=== PATIENT | male | born 1935 | race Caucasian/White ===

== ENCOUNTER 2017-05-14 08:21 | Outpatient (CLI) | payer MEDICARE | END 2017-05-14 08:22 | disposition home or self-care (01) | LOC: LABBT 08:21 | PROVIDERS: ATTEND Orthopaedic Surgery | DX: Z01.810 Encounter for preprocedural cardiovascular examination (principal); Z01.812 Encounter for preprocedural laboratory examination; M17.11 Unilateral primary osteoarthritis, right knee | CPT/HCPCS: 87081; 93005; 93010 ==

== ENCOUNTER 2017-05-14 08:30 | Inpatient (IN) | payer MEDICARE ==
--- NOTE | 2017-05-23 13:34 | HP ---
HISTORY OF PRESENT ILLNESS: The patient is a 81-year-old male with a long history of progressive deg enerative arthritis of the right knee, unresponsive to conservative treatment including rest, restric tion of activities, and previous cortisone injections. The pain is now interfering with day-to-day a ctivities. He has had previous left total knee replacement in 2010 with good results. PAST MEDICAL HISTORY: The patient has a history of diabetes, peripheral vascular disease and previou s coronary bypass. He has also had previous femoral popliteal grafting on the right side with resolu tion of his symptoms of cramping and pain, but he continues to have knee pain. He has been seen and cleared for surgery by his primary care physician, Dr. 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 CURRENT MEDICATIONS: Include Lantus, insulin, Synthroid, aspirin, Crestor, Bystolic. ALLERGIES: He is allergic to IODINE. FAMILY HISTORY: Otherwise unremarkable. SOCIAL HISTORY: Otherwise unremarkable. REVIEW OF SYSTEMS: Otherwise unremarkable. PHYSICAL EXAMINATION: GENERAL: Reveals an elderly, heavyset male. HEENT: Unremarkable. NECK: Supple. CHEST: Clear. HEART: Regular rate and rhythm. ABDOMEN: Soft, nontender. RECTAL/GENITAL: Deferred. EXTREMITIES: Pertinent findings of the right knee: There is puffiness but no definite effusion. Th ere is mild varus. There is tenderness and crepitus over the medial joint line. Range of motion is 0-120 degrees. There is no instability. There is good capillary refill. I cannot palpate distal pu lses. Slight right antalgic gait. Neurovascular exam is intact. LABORATORY AND X-RAY FINDINGS: X-rays of the right knee reveal bone on bone collapse medially and va scular calcifications. IMPRESSION: 1. Degenerative arthritis, right knee. 2. Peripheral vascular disease. 3. Atherosclerotic cardiovascular disease. 4. Insulin-dependent diabetes. 5. Status post left total knee replacement. PLAN: Right total knee replacement. The nature of the surgery, length of recovery, and potential co mplications such as infection, loss of motion, incomplete relief, delayed wound healing, neurovascula r injury, thromboembolic phenomenon, possible transfusion, and need for revision have been discussed in detail. Because of his other medical problems, he may require longer than usual hospital stay.
[2017-05-27] MEDS ORDERED: Midazolam HCl 2 mg/2 ml Vial ONE (09:24)
[2017-05-27] MEDS ORDERED: Fentanyl 100 MCG/2 ML VIAL ONE ×3 (09:24→14:12)
[2017-05-27] MEDS ORDERED: Vancomycin HCl 2 GM, Admixture Fee 1 EACH in Sodium Chloride 0.9% 500 ML IVPB SCH (10:00)
[2017-05-27] MEDS ORDERED: CEFAZOLIN/Water 2 GM/20 ML SYRINGE ONE (10:26)
[2017-05-27] MEDS ORDERED: Tranexamic Acid 1,000 MG/100 ML BAG ONE ×2 (10:27→14:29)
[2017-05-27 10:43] LABS: Potassium 4.3 mmol/L (3.5-5.1)
[2017-05-27] MEDS ORDERED: Promethazine HCl 25 MG/ML VIAL IM PRN ×3 (11:07→15:56)
[2017-05-27] MEDS ORDERED: Ondansetron HCl/PF 4 MG/2 ML Vial IVP PRN ×3 (11:07→15:56)
[2017-05-27] MEDS ORDERED: Zolpidem Tartrate 5 MG TAB PO PRN ×2 (11:07→15:56)
[2017-05-27] MEDS ORDERED: HYDROcodone/Acetaminophen 10/325 mg Tablet PO PRN ×3 (11:07→15:56)
[2017-05-27] MEDS ORDERED: Ropivacaine HCl/PF 250 ML in Premix Bag 1 BAG NERVE BLCK SCH (11:07)
[2017-05-27] MEDS ORDERED: Bupivacaine HCl 0.5%/Epinephrine 1:200,000/PF 30 ml Vial ONE (11:24)
[2017-05-27] MEDS ORDERED: Lidocaine 1% w/Epinephrine 1:100K 30 ML VIAL ONE (11:24)
[2017-05-27] MEDS ORDERED: Bupivacaine 0.25% HCL 30 ML VIAL ONE (11:24)
[2017-05-27] MEDS ORDERED: Promethazine HCl 25 MG/ML VIAL SLOW IVP PRN (12:11)
[2017-05-27] MEDS ORDERED: Ropivacaine 0.5% HCl/PF (150 MG/30 ML VIAL) ONE (13:42)
[2017-05-27] MEDS ORDERED: Ropivacaine 0.2% HCl/PF (40 MG/20 ML VIAL) ONE (13:42)
--- NOTE | 2017-05-27 13:55 | OP ---
DATE OF PROCEDURE: 05/27/2017 PREOPERATIVE DIAGNOSIS: End-stage tricompartmental osteoarthritis, right knee. POSTOPERATIVE DIAGNOSIS: End-stage tricompartmental osteoarthritis, right knee. OPERATIVE PROCEDURE: Cemented cruciate-sparing computer-assisted navigated right total knee arthroplasty. SURGEON: Nadeem Sood M.D. [employer]OUNT [employer] SALES: Darrick Segura PA-C. ANESTHESIA: General via laryngeal mask airway augmented with indwelling adductor canal block and a single shot sciatic block. COMPONENTS USED: [employer] Triathlon cemented cruciate-sparing size 6 primary femoral component with size 6 universal cemented baseplate. An 11 mm polyethylene fixed bearing insert and A35 patellar button. TOURNIQUET: Not used. ESTIMATED BLOOD LOSS: 400 mL. FINDINGS: End-stage severe degenerative tricompartmental disease, bone on bone arthrosis, periarticular osteophyte formation, large serous effusion, hypertrophic synovium. DRAINS: None. SPECIMENS: None. COMPLICATIONS: None. COUNTS: Correct. INDICATIONS FOR SURGERY: Cabrera is a 81-year-old white male who has right knee pain amplified with standing and walking about 5-7 years. He has failed conservative management and elected to proceed with total knee arthroplasty as definitive treatment of his pain. Tourniquet was not used due to the patient's known femoropopliteal arterial bypass and known peripheral vascular disease. PROCEDURE IN DETAIL: After informed consent was obtained in the preoperative holding area. The patient was taken to the operative suite where general anesthesia was induced. Once adequate level of general anesthesia was obtained , the patient was positioned and a well-padded tourniquet was placed around the right proximal thigh. The right lower extremity was then prepped and draped in the usual sterile fashion. A midline longitudinal incision was then made directly over the patella extending two fingerbreadths above the superior pole of the patella and two fingerbreadths inferior to the inferior patellar pole of the patella. Deeper subcutaneous layers were dissected sharply and local bleeding was controlled with Bovie electrocautery. A quad tendon longitudinal split was then made sharply and a median parapatellar arthrotomy was carried out both sharp and with Bovie electrocautery, carried down to one fingerbreadth medial to the tibial tubercle. The knee was then placed into flexion and the patella was everted nicely, and a copious fat pad ectomy was performed allowing for greater exposure of the tibia. The computer-assisted distal femoral fiducial was then placed and pinned firmly, and the distal femoral cutting guide was pinned firmly into place. The oscillating saw was then used to remove the appropriate amount of bone. The 4-in-1 cutting block was then placed on the distal femur and the oscillating saw was used to remove the appropriate amount of bone off of the anterior, posterior, and chamfer cuts. After completion of the chamfer cuts, the box-cutting guide was placed, malleted firmly into place and pinned securely, and an osteotome was used to make the distal cut and the oscillating saw was then used to make the medial and lateral box cuts. This came out quite nicely and was removed with Bovie electrocautery, and the oscillating saw was then used to broaden the lateral medial lagunas of the box cut. After completion of bone cuts, the anterior cruciate ligament was resected sharply and the posterior cruciate ligament retractor was placed and the tibia was subluxed for better exposure. Partial meniscectomies were carried out, and the tibial computer-assisted fiducial was pinned, and the cutting guide was placed. Oscillating saw was then used to remove the bone with Hohmann retractors used to take care and protect the collateral ligaments. After the tibial resection was performed, a laminar instrument tech was placed in between the freshened bone cuts. The knee placed at 90 degrees and further bilateral meniscectomies were carried out, and the curved osteotome and curettage was used to remove any excess bone spurs in the posterior compartment. The trial femoral component, tibial baseplate were placed with the appropriate polyethylene trial insert with an appropriate polyethylene spacer and patellar button. The knee was taken through full range of motion with flexion and extension from 0-90 degrees and patellar broach squarely in the trochlea without any squinting or subluxation noted. The knee was also stable to varus and valgus stressing at 0, 15, 45, and 90 degrees of flexion. The drawer was negative. All trial components were then removed and the keel punch was used to provide the appropriate defect in the tibia with a mallet. The freshened bone cuts were copiously irrigated with pulsatile lavage of about 1-1/2 liters to remove all excess debris. The freshened bone cuts were then dried and with suction and lap sponge. The knee was placed in flexion and retractors were placed to provide access to all bone cuts. Tobramycin impregnated methyl methacrylate cement was then placed on the freshened bone cuts and implants which were malleted firmly into place. Curettage and [place] elevators were used to remove any excess bone cement. The knee was placed into full extension and the patellar button was placed under compression, and the cement was allowed to cure. Once completed, the components were again taken through full range of motion and copious irrigation of the knee was carried out with another liter of normal saline. All components were inspected fully with full range of motion and varus and valgus stressing. There was no laxity noted and full extension was observed clinically. Primary closure was accomplished with #2 interrupted Vicryl stitch of the arthrotomy defect. This was oversewn with a #2 running Quill barbed stitch. The subcutaneous layer was then closed with a running 0 barbed Monocryl stitch and skin closure accomplished with a running subcuticular 3-0 Monocryl barbed Quill stitch and augmented with cement on the skin. Good distal pulses was noted clinically and a sterile dressing was applied to the incision. The procedure was terminated without any complications. The patient was awakened in the operative suite and taken to the recovery room in stable condition. GUILLERMO
[2017-05-27] MEDS ORDERED: Tranexamic Acid 1,000 MG in Sodium Chloride 0.9% 100 ML IVPB SCH ×2 (14:00→15:56)
[2017-05-27] MEDS ORDERED: Ketorolac Tromethamine 30 MG/ML VIAL ONE (14:33)
[2017-05-27] MEDS ORDERED: Propofol 200 MG/20 ML VIAL ONE (15:01)
[2017-05-27] MEDS ORDERED: Lidocaine 1% PF 5 ML VIAL ONE (15:01)
[2017-05-27] MEDS ORDERED: ePHEDrine/0.9% NaCl/PF SYRINGE 50 mg/10 ml ONE (15:01)
[2017-05-27] MEDS ORDERED: Ondansetron HCl/PF 4 MG/2 ML Vial ONE (15:01)
--- NOTE | 2017-05-27 15:52 | RAD ---
TWO VIEWS RIGHT KNEE: HISTORY: Right knee pain status post right knee arthroplasty. FINDINGS: AP and lateral views of the right knee are obtained. There has been a right knee arthroplasty. Femoral and tibial components in good position. Gas is se en in the right knee joint. There is marked atherosclerotic calcification of the superficial femoral artery and post trifurcation arteries. IMPRESSION: Status post right knee arthroplasty. POS: CET
[2017-05-27] MEDS ORDERED: Cyanocobalamin 1000 MCG/ML VIAL SC SCH (15:56)
[2017-05-27] MEDS ORDERED: Acetaminophen 325 MG TAB PO PRN (15:56)
[2017-05-27] MEDS ORDERED: Fentanyl 100 MCG/2 ML VIAL SLOW IVP PRN ×2 (15:56)
[2017-05-27] MEDS ORDERED: diphenhydrAMINE 25 MG CAP PO PRN (15:56)
[2017-05-27] MEDS ORDERED: Spiriva 18 MCG CAP (Box of 5 Caps) INH PRN (15:56)
[2017-05-27] MEDS ORDERED: PROVENTIL INHALER 6.7 G (200 INHALATIONS) INH PRN (15:56)
[2017-05-27] MEDS ORDERED: traMADol HCl 50 MG TAB PO PRN (15:56)
[2017-05-27] MEDS: Fentanyl 100 MCG/2 ML VIAL IV PRN ×2 (16:20→20:22)
[2017-05-27] MEDS: Sodium Chloride 0.9% 1,000 ML IV SCH (16:48)
[2017-05-27] MEDS: Ketorolac Tromethamine 30 MG/ML VIAL IVP SCH ×3 (17:40→20:16)
[2017-05-27] MEDS: metFORMIN 500 MG TAB PO SCH (18:30)
[2017-05-27] MEDS: HYDROcodone/Acetaminophen 10/325 mg Tablet PO PRN ×2 (18:30→22:25)
[2017-05-27] MEDS: CEFAZOLIN/Water 2 GM/20 ML SYRINGE SLOW IVP SCH ×3 (18:31→20:18)
[2017-05-27] MEDS ORDERED: Losartan 25 MG TAB PO SCH (18:45)
[2017-05-27] MEDS: Alogliptin 6.25 MG TAB PO SCH (18:59)
[2017-05-27] MEDS ORDERED: Dextrose 50% Abboject 50 ML SYRINGE SLOW IVP PRN (19:14)
[2017-05-27] MEDS ORDERED: Dextrose 5% in Water 1,000 ML IV PRN (19:14)
[2017-05-27] MEDS ORDERED: Insulin Regular 300 UNITS/3 ML VIAL SC PRN (19:14)
[2017-05-27 19:54] VITALS: BMI 38.0
[2017-05-27] MEDS: Aspirin 81 mg Enteric Coated Tablet PO SCH (20:22)
[2017-05-27] MEDS: Tamsulosin HCl 0.4 MG CAP PO SCH (20:22)
[2017-05-27] MEDS: Rosuvastatin 20 MG TAB PO SCH (20:22)
--- NOTE | 2017-05-27 20:34 | PDOC.PN ---
- Subjective Encounter Start Date: 05/27/17 Encounter Start Time: 20:34 Patient seen and examined. Pain controlled. No CP/SOB. - Objective MAR Reviewed: Yes Vital Signs & Weight: Vital Signs (12 hours) Temp Pulse Resp BP Pulse Ox 05/27/17 20:24 71 16 149/63 H 05/27/17 16:00 97.6 F 66 18 100 05/27/17 15:30 97.6 F 66 18 144/59 H 100 Weight Weight 265 lb I&O: 05/26/17 05/27/17 05/28/17 06:59 06:59 06:59 Intake Total 1310 Output Total 300 Balance 1010 Result Diagrams: 05/27/17 10:15 Additional Labs: Accuchecks 05/27/17 05/27/17 16:17 13:54 POC Glucose 99 97 EKG Reviewed by me: Yes (, JANNET) Phys Exam - Physical Examination Constitutional: NAD Respiratory: no wheezing, no rales, no rhonchi Cardiovascular: RRR, no rub no heaves/pulsations Gastrointestinal: soft, non-tender, no distention, positive bowel sounds Musculoskeletal: no edema Dx/Plan - Plan DVT proph w/SCDs IMPRESSION: 1. DM2 2. CAD s/p CABG 3. PVD s/p fem-pop 4. HTN 5. HLD 6. h/o CVA 7. Hypothyroidism / Obesity BMI 38 PLAN: * Add insulin sliding scale. * Hold Lantus for now * Cont current home meds as below * DVT prophylaxis per protocol * Cont Levothyroxine * Cont Losartan Review of Systems - Review of Systems Respiratory: negative: Cough, Dry, Shortness of Breath, Hemoptysis, SOB with Excertion, Pleuritic Pain, Sputum, Wheezing Cardiovascular: negative: chest pain, palpitations, orthopnea, paroxysmal nocturnal dyspnea, edema, light headedness Gastrointestinal: negative: Nausea, Vomiting, Abdominal Pain, Diarrhea, Constipation, Melena, Hematochezia - Medications/Allergies Allergies/Adverse Reactions: Allergies Allergy/AdvReac Type Severity Reaction Status Date / Time Iodinated Contrast- Oral and Allergy rash, Verified 05/14/17 08:53 IV Dye flushing, itching Medications: Current Medications Acetaminophen (Tylenol) 650 mg PO Q4H PRN PRN Reason: SHIN/ T > 101F; Mild Pain (1-3) Hydrocodone Bitart/Acetaminophen ([place] 10/325) 1 tab PO Q4H PRN PRN Reason: Pain (1-3) Hydrocodone Bitart/Acetaminophen ([place] 10/325) 2 tab PO Q4H PRN PRN Reason: PAIN (4-6) Last Admin: 05/27/17 18:30 Dose: 2 tab Albuterol Sulfate (Proventil Hfa) 2 puff INH Q6H PRN PRN Reason: SOB &/or Wheezing Albuterol/Ipratropium (Duoneb) 3 ml NEB [id number] PRN PRN Reason: SOB &/or Wheezing Alogliptin Benzoate (Alogliptin) 12.5 mg PO BID-[facility] Last Admin: 05/27/17 18:59 Dose: 12.5 mg Aspirin (Ecotrin) 81 mg PO BID [facility] Last Admin: 05/27/17 20:22 Dose: 81 mg Cefazolin Sodium (Ancef) 2 gm SLOW IVP 0400,1200,2000 [facility] Stop: 05/28/17 04:01 Last Admin: 05/27/17 20:18 Dose: 2 gm Cyanocobalamin (Vitamin B-12) 100 mcg SC Q28D [facility] Dextrose/Water (Dextrose 50%) 25 gm SLOW IVP PRN PRN PRN Reason: Hypoglycemia Diphenhydramine HCl (Benadryl) 25 mg PO Q6H PRN PRN Reason: Itching Fentanyl (Sublimaze) 50 mcg IV Q1H PRN PRN Reason: Moderate to Severe Pain (6-10) Last Admin: 05/27/17 20:22 Dose: 50 mcg Ferrous [facility]) [facility] Glucagon (Glucagon) 1 mg IM PRN PRN PRN Reason: Hypoglycemia Ropivacaine 250 ml/ Device 250 mls @ 0 mls/hr NERVE BLCK INF [facility] PRN Reason: As Directed Sodium Chloride (Normal Saline 0.9%) 1,000 mls @ 100 mls/hr IV .Q10H [facility] Last Admin: 05/27/17 16:48 Dose: 1,000 mls Vancomycin HCl 2 gm/ Sodium (Chloride) 500 mls @ 250 mls/hr IVPB 2300 [facility] Stop: 05/28/17 00:59 Dextrose/Water (D5w) 1,000 mls @ 0 mls/hr IV .Q0M PRN; As Directed PRN Reason: Hypoglycemia Insulin Human Regular (Humulin R) 0 units SC .MILD SLIDING SCALE PRN PRN Reason: Mild Correctional Scale Insulin Human Regular (Humulin R) 0 units SC .BEDTIME SLIDING SC PRN PRN Reason: Bedtime Correctional Scale Iron/Minerals/Multivitamins (Theragran M) 1 tab PO DAILY [facility] Ketorolac Tromethamine (Toradol) 15 mg IVP 0300,0900,1500,2100 [facility] Stop: 05/29/17 15:01 Last Admin: 05/27/17 20:16 Dose: 15 mg Levothyroxine Sodium (Synthroid) 200 mcg PO 0600 SERGIO Losartan Potassium (Cozaar) 50 mg PO QAM [facility] Losartan Potassium (Cozaar) 50 mg PO NOW [facility] Stop: 05/27/17 20:45 Last Admin: 05/27/17 19:00 Dose: 50 mg Metformin HCl (Glucophage) 1,000 mg PO BID-[facility] Last Admin: 05/27/17 18:30 Dose: 1,000 mg Nebivolol (Bystolic) 2.5 mg PO QAM [facility] Ondansetron HCl (Zofran) 4 mg IVP Q6H PRN PRN Reason: Nausea/Vomiting Pioglitazone HCl (Actos) 15 mg PO QAM [facility] Promethazine HCl (Phenergan) 12.5 mg IM Q4H PRN PRN Reason: Nausea/Vomiting Rosuvastatin Calcium (Crestor) 20 mg PO HS [facility] Last Admin: 05/27/17 20:22 Dose: 20 mg Senna/Docusate Sodium (Senokot S) 2 tab PO BID [facility] Sodium Chloride (Flush - Normal Saline) 10 ml IVF PRN PRN PRN Reason: Saline Flush Tamsulosin HCl (Flomax) 0.4 mg PO HS [facility] Last Admin: 05/27/17 20:22 Dose: 0.4 mg Tiotropium [place] (Spiriva Handihaler) 18 mcg INH DAILY-RT [facility] Zolpidem Tartrate (Ambien) 5 mg PO HSPRN PRN PRN Reason: Insomnia
[2017-05-28] MEDS: Fentanyl 100 MCG/2 ML VIAL IV PRN ×4 (00:16→20:03)
[2017-05-28] MEDS: Ipratropium Bromide 2.5 ml Neb NEB SCH ×4 (00:52→18:54)
[2017-05-28] MEDS: Sodium Chloride 0.9% 1,000 ML IV SCH ×3 (01:10→21:28)
[2017-05-28] MEDS: HYDROcodone/Acetaminophen 10/325 mg Tablet PO PRN ×5 (02:12→22:10)
[2017-05-28] MEDS: Ketorolac Tromethamine 30 MG/ML VIAL IVP SCH ×4 (04:02→22:09)
[2017-05-28] MEDS: CEFAZOLIN/Water 2 GM/20 ML SYRINGE SLOW IVP SCH (04:03)
[2017-05-28] MEDS: Levothyroxine Sodium 100 MCG TAB PO SCH (04:03)
[2017-05-28 04:48] LABS: Hemoglobin 11.2 g/dL (14.0-18.0); Mean Corpuscular HGB CONC 33.4 g/dL (32.0-36.0); Mean Corpuscular Hemoglobin 31.1 pg (27.0-31.0); Mean Corpuscular Volume 93.3 fl (80.0-94.0); Mean Platelet Volume 8.8 fL (7.4-10.4); Platelet Count 119 thou/uL (130-400); RBC Distribution Width 12.2 % (11.5-14.5); White Blood Cell (WBC) Count 9.8 thou/uL (4.8-10.8)
[2017-05-28] MEDS: Aspirin 81 mg Enteric Coated Tablet PO SCH ×2 (08:54→20:06)
[2017-05-28] MEDS: Ferrous Gluconate 324 MG TAB PO SCH ×2 (08:54→17:59)
[2017-05-28] MEDS: metFORMIN 500 MG TAB PO SCH ×2 (08:54→17:58)
[2017-05-28] MEDS: Multivitamin W/ Minerals 1 TAB PO SCH (08:54)
[2017-05-28] MEDS: Losartan 25 MG TAB PO SCH (08:54)
[2017-05-28] MEDS: Senokot S 8.6-50 MG TAB PO SCH ×2 (08:54→20:06)
[2017-05-28] MEDS: Pioglitazone HCl 15 MG TAB PO SCH (08:55)
[2017-05-28] MEDS: Alogliptin 6.25 MG TAB PO SCH ×2 (08:55→17:59)
[2017-05-28] MEDS: Nebivolol HCl 2.5 MG TAB PO SCH (09:06)
[2017-05-28] MEDS: Insulin Regular 300 UNITS/3 ML VIAL SC PRN ×2 (11:31→16:11)
[2017-05-28] MEDS ORDERED: traMADol HCl 50 MG TAB PO PRN (14:27)
[2017-05-28] MEDS: traMADol HCl 50 MG TAB PO PRN (16:06)
[2017-05-28] MEDS ORDERED: Milk Of Magnesia 30 ML UDCUP PO PRN (19:04)
--- NOTE | 2017-05-28 19:10 | PDOC.PN ---
- Subjective Encounter Start Date: 05/28/17 Encounter Start Time: 17:30 Patient seen and examined. Pain over the surgical site. No overnight events. - Objective MAR Reviewed: Yes Vital Signs & Weight: Vital Signs (12 hours) Temp Pulse Resp BP Pulse Ox 05/28/17 18:54 65 16 98 05/28/17 15:58 98.7 F 82 16 147/64 H 97 05/28/17 13:22 98.1 F 70 18 153/63 H 96 05/28/17 09:55 98.5 F 64 18 155/70 H 98 05/28/17 07:40 60 14 Weight Admit Weight 265 lb Weight 265 lb I&O: 05/27/17 05/28/17 05/29/17 06:59 06:59 06:59 Intake Total 2371 Output Total 900 Balance 1471 Result Diagrams: 05/28/17 04:06 05/27/17 10:15 Additional Labs: Accuchecks 05/28/17 05/28/17 05/28/17 16:06 11:23 06:43 POC Glucose 184 H 182 H 148 H Phys Exam - Physical Examination Constitutional: NAD Respiratory: no wheezing, no rhonchi Cardiovascular: RRR, no rub Gastrointestinal: soft, non-tender, positive bowel sounds Musculoskeletal: no edema Neurological: moves all 4 limbs Dx/Plan - Plan DVT proph w/SCDs IMPRESSION: 1. DM2 2. CAD s/p CABG 3. PVD s/p fem-pop 4. HTN 5. HLD 6. h/o CVA 7. Hypothyroidism / Obesity BMI 38 PLAN: * Add Levemir 30 units HS * Cont insulin sliding scale. * Cont current home meds as below * Cont Levothyroxine/Losartan Review of Systems - Review of Systems Respiratory: negative: Cough, Dry, Shortness of Breath, Hemoptysis, SOB with Excertion, Pleuritic Pain, Sputum, Wheezing Cardiovascular: negative: chest pain, palpitations, orthopnea, paroxysmal nocturnal dyspnea, edema, light headedness - Medications/Allergies Allergies/Adverse Reactions: Allergies Allergy/AdvReac Type Severity Reaction Status Date / Time Iodinated Contrast- Oral and Allergy rash, Verified 05/14/17 08:53 IV Dye flushing, itching Medications: Current Medications Acetaminophen (Tylenol) 650 mg PO Q4H PRN PRN Reason: SHIN/ T > 101F; Mild Pain (1-3) Hydrocodone Bitart/Acetaminophen ([place] 10/325) 1 tab PO Q4H PRN PRN Reason: Pain (1-3) Hydrocodone Bitart/Acetaminophen ([place] 10/325) 2 tab PO Q4H PRN PRN Reason: PAIN (4-6) Last Admin: 05/28/17 18:03 Dose: 2 tab Albuterol Sulfate (Proventil Hfa) 2 puff INH Q6H PRN PRN Reason: SOB &/or Wheezing Albuterol/Ipratropium (Duoneb) 3 ml NEB D0CI-MS PRN PRN Reason: SOB &/or Wheezing Alogliptin Benzoate (Alogliptin) 12.5 mg PO BID-[facility] Last Admin: 05/28/17 17:59 Dose: 12.5 mg Aspirin (Ecotrin) 81 mg PO BID [facility] Last Admin: 05/28/17 08:54 Dose: 81 mg Dextrose/Water (Dextrose 50%) 25 gm SLOW IVP PRN PRN PRN Reason: Hypoglycemia Diphenhydramine HCl (Benadryl) 25 mg PO Q6H PRN PRN Reason: Itching Fentanyl (Sublimaze) 50 mcg IV Q1H PRN PRN Reason: Moderate to Severe Pain (6-10) Last Admin: 05/28/17 12:01 Dose: 50 mcg Ferrous Gluconate (Fergon) 324 mg PO BID-[facility] Last Admin: 05/28/17 17:59 Dose: 324 mg Glucagon (Glucagon) 1 mg IM PRN PRN PRN Reason: Hypoglycemia Ropivacaine 250 ml/ Device 250 mls @ 0 mls/hr NERVE BLCK INF [facility] PRN Reason: As Directed Sodium Chloride (Normal Saline 0.9%) 1,000 mls @ 100 mls/hr IV .Q10H [facility] Last Admin: 05/28/17 15:21 Dose: Not Given Dextrose/Water (D5w) 1,000 mls @ 0 mls/hr IV .Q0M PRN; As Directed PRN Reason: Hypoglycemia Insulin Detemir 30 units/ (Miscellaneous Medication) 0.3 mls @ 0 mls/hr SC [facility] Insulin Human Regular (Humulin R) 0 units SC .MILD SLIDING SCALE PRN PRN Reason: Mild Correctional Scale Last Admin: 05/28/17 16:11 Dose: 2 unit Insulin Human Regular (Humulin R) 0 units SC .BEDTIME SLIDING SC PRN PRN Reason: Bedtime Correctional Scale Ipratropium [place] (Atrovent) 2.5 ml NEB [id number] [facility] Last Admin: 05/28/17 18:54 Dose: 2.5 ml Iron/Minerals/Multivitamins (Theragran M) 1 tab PO DAILY [facility] Last Admin: 05/28/17 08:54 Dose: 1 tab Ketorolac Tromethamine (Toradol) 15 mg IVP 0300,0900,1500,2100 [facility] Stop: 05/29/17 15:01 Last Admin: 05/28/17 14:06 Dose: 15 mg Levothyroxine Sodium (Synthroid) 200 mcg PO 0600 [facility] Last Admin: 05/28/17 04:03 Dose: 200 mcg Losartan Potassium (Cozaar) 50 mg PO QAM [facility] Last Admin: 05/28/17 08:54 Dose: 50 mg Magnesium Hydroxide (Milk Of Magnesium) 30 ml PO DAILYPRN PRN PRN Reason: Constipation Metformin HCl (Glucophage) 1,000 mg PO BID-[facility] Last Admin: 05/28/17 17:58 Dose: 1,000 mg Nebivolol ([facility]stolic) [facility] Last Admin: 05/28/17 09:06 Dose: 2.5 mg Ondansetron HCl (Zofran) 4 mg IVP Q6H PRN PRN Reason: Nausea/Vomiting Pioglitazone HCl (Actos) [facility] Last Admin: 05/28/17 08:55 Dose: 15 mg Promethazine HCl (Phenergan) 12.5 mg IM Q4H PRN PRN Reason: Nausea/Vomiting Rosuvastatin Calcium (Crestor) [address] [facility] Last Admin: 05/27/17 20:22 Dose: 20 mg Senna/Docusate Sodium (Senokot S) 2 tab PO BID [facility] Last Admin: 05/28/17 08:54 Dose: 2 tab Sodium Chloride (Flush - Normal Saline) 10 ml IVF PRN PRN PRN Reason: Saline Flush Last Admin: 05/28/17 12:03 Dose: 10 ml Tamsulosin HCl (Flomax) 0.[address] [facility] Last Admin: 05/27/17 20:22 Dose: 0.4 mg Tramadol HCl (Ultram) 50 mg PO Q6H PRN PRN Reason: PAIN SCALE 2-4 Tramadol HCl (Ultram) 100 mg PO Q6H PRN PRN Reason: PAIN SCALE 5-10 Last Admin: 05/28/17 16:06 Dose: 100 mg Zolpidem Tartrate (Ambien) 5 mg PO HSPRN PRN PRN Reason: Insomnia
[2017-05-28] MEDS: Rosuvastatin 20 MG TAB PO SCH (20:05)
[2017-05-28] MEDS: Tamsulosin HCl 0.4 MG CAP PO SCH (20:05)
[2017-05-28] MEDS ORDERED: Insulin Detemir 100 UNITS/ML 30 UNITS in Pre-Filled Syringe 1 EACH SC SCH (21:00)
[2017-05-29] MEDS: Ipratropium Bromide 2.5 ml Neb NEB SCH ×3 (00:01→12:02)
[2017-05-29] MEDS: traMADol HCl 50 MG TAB PO PRN (00:36)
[2017-05-29] MEDS: HYDROcodone/Acetaminophen 10/325 mg Tablet PO PRN ×3 (02:03→13:48)
[2017-05-29] MEDS: Ketorolac Tromethamine 30 MG/ML VIAL IVP SCH ×2 (02:03→08:33)
[2017-05-29 05:12] LABS: Anion Gap 9 mmol/L (10-20); BUN (Urea Nitrogen) 11 mg/dL (8.4-25.7); Calc. Creatinine Clearance 140 mL/min (70-130); Calcium 9.1 mg/dL (7.8-10.44); Carbon Dioxide 27 mmol/L (23-31); Chloride 96 mmol/L (98-107); Estimated GFR-MDRD Greater than 90; Glucose 173 mg/dL (83-110); Sodium 128 mmol/L (136-145)
[2017-05-29] MEDS: Levothyroxine Sodium 100 MCG TAB PO SCH (05:53)
[2017-05-29] MEDS: Insulin Regular 300 UNITS/3 ML VIAL SC PRN (05:53)
[2017-05-29] MEDS: Losartan 25 MG TAB PO SCH (08:31)
[2017-05-29] MEDS: Nebivolol HCl 2.5 MG TAB PO SCH (08:31)
[2017-05-29] MEDS: Alogliptin 6.25 MG TAB PO SCH (08:31)
[2017-05-29] MEDS: Pioglitazone HCl 15 MG TAB PO SCH (08:32)
[2017-05-29] MEDS: Ferrous Gluconate 324 MG TAB PO SCH (08:32)
[2017-05-29] MEDS: Multivitamin W/ Minerals 1 TAB PO SCH (08:32)
[2017-05-29] MEDS: metFORMIN 500 MG TAB PO SCH (08:32)
[2017-05-29] MEDS: Senokot S 8.6-50 MG TAB PO SCH (08:32)
[2017-05-29] MEDS: Aspirin 81 mg Enteric Coated Tablet PO SCH (08:33)
[2017-05-29] MEDS: Sodium Chloride 0.9% 1,000 ML IV SCH (08:33)
[2017-05-29 11:20] LABS: Anion Gap 7 mmol/L (10-20); BUN (Urea Nitrogen) 12 mg/dL (8.4-25.7); Calc. Creatinine Clearance 129 mL/min (70-130); Calcium 8.9 mg/dL (7.8-10.44); Carbon Dioxide 29 mmol/L (23-31); Chloride 94 mmol/L (98-107); Estimated GFR-MDRD Greater than 90; Glucose 159 mg/dL (83-110); Potassium 4.3 mmol/L (3.5-5.1); Sodium 126 mmol/L (136-145)
[2017-05-29 12:27] VITALS: BP 147/63; TEMP 98.1
[2017-05-29] MEDS ORDERED: Furosemide 20 MG TAB PO SCH (13:30)
== END 2017-05-29 15:39 | disposition home or self-care (01) | DRG 470 ==
LOC: SURG A 05-27 08:11 → EDSTATUS 05-27 08:30 → SJJU 05-27 15:52
PROVIDERS: ADMIT Orthopaedic Surgery; ATTEND Orthopaedic Surgery
PROC: 0SRC0J9 Replacement of Right Knee Joint with Synthetic Substitute, Cemented, Open Approach (ICD-10-PCS; principal; 2017-05-27)
PROC: 3E0T3BZ Introduction of Anesthetic Agent into Peripheral Nerves and Plexi, Percutaneous Approach (ICD-10-PCS; 2017-05-27)
DX: M17.11 Unilateral primary osteoarthritis, right knee (principal); E11.42 Type 2 diabetes mellitus with diabetic polyneuropathy; Z96.652 Presence of left artificial knee joint; Z79.4 Long term (current) use of insulin; Z95.1 Presence of aortocoronary bypass graft; Z79.82 Long term (current) use of aspirin; Z91.041 Radiographic dye allergy status; M25.461 Effusion, right knee; Z95.820 Peripheral vascular angioplasty status with implants and grafts; I10 Essential (primary) hypertension; Z85.828 Personal history of other malignant neoplasm of skin; E78.5 Hyperlipidemia, unspecified; Z86.73 Personal history of transient ischemic attack (TIA), and cerebral infarction without residual deficits; E03.9 Hypothyroidism, unspecified; E66.9 Obesity, unspecified; Z68.38 Body mass index [BMI] 38.0-38.9, adult; N40.0 Benign prostatic hyperplasia without lower urinary tract symptoms; G47.30 Sleep apnea, unspecified
CPT/HCPCS: 36415; 36416; 80048; 83930; 84132; 84295; 85027; 94640; C1713; C1776; G8978-GP-CN; G8979-GP-CK; J0670; J1815; J1885; J2001; J2250; J2405; J2704; J2795; J3010; J3370; J7050; J7644; S0020

== ENCOUNTER 2017-05-20 10:30 | Outpatient (CLI) | payer MEDICARE ==
[2017-05-20 11:04] LABS: Hemoglobin 13.9 g/dL (14.0-18.0); Mean Corpuscular HGB CONC 34.7 g/dL (32.0-36.0); Mean Corpuscular Hemoglobin 31.5 pg (27.0-31.0); Mean Corpuscular Volume 90.8 fl (80.0-94.0); Mean Platelet Volume 8.8 fL (7.4-10.4); Platelet Count 147 thou/uL (130-400); White Blood Cell (WBC) Count 8.7 thou/uL (4.8-10.8)
[2017-05-20 11:12] LABS: Bilirubin Negative (Negative); Blood, Urine Negative (Negative); Clarity CLEAR (Clear); Glucose, Urine (Dipstick) Negative (Negative); Leukocyte Negative (Negative); Nitrite Negative (Negative); Protein, Urine (Dipstick) Negative (Neg-Trace); Specific Gravity, Urine 1.021 (1.002-1.036); Urobilinogen 0.2 mg/dL (0.2-1.0); pH, Urine 6.5 (5.0-9.0)
[2017-05-20 11:14] LABS: Prothrombin Time 13.5 SEC (12.0-14.7)
[2017-05-20 11:22] LABS: Bacteria/HPF None Seen HPF (None Seen); Hyaline Casts/LPF 0-3 HYALINE CAST LPF (0-3 Hyaline); Pathc Cast-AUWi Flag 0.13 (0-2.49); RBC/HPF 0-3 HPF (0-3); Squamous Epithelial None Seen HPF (0-3); WBC/HPF None Seen HPF (0-3)
[2017-05-20 11:23] LABS: Anion Gap 10 mmol/L (10-20); BUN (Urea Nitrogen) 15 mg/dL (8.4-25.7); Calc. Creatinine Clearance 0 mL/min (70-130); Calcium 9.8 mg/dL (7.8-10.44); Carbon Dioxide 26 mmol/L (23-31); Chloride 96 mmol/L (98-107); Estimated GFR-MDRD 81; Glucose 119 mg/dL (83-110); Potassium 4.7 mmol/L (3.5-5.1); Sodium 127 mmol/L (136-145)
== END 2017-05-20 10:31 | disposition home or self-care (01) ==
LOC: LABBT 10:30
PROVIDERS: ATTEND Orthopaedic Surgery
DX: Z01.818 Encounter for other preprocedural examination (principal); M17.11 Unilateral primary osteoarthritis, right knee
CPT/HCPCS: 80048; 81001; 85027; 85610; 86850; 86900; 86901

== ENCOUNTER 2018-11-19 15:03 | Outpatient (CLI) | payer MEDICARE ==
--- NOTE | 2018-11-19 17:34 | MRI ---
RIGHT LOWER EXTREMITY MRI WITHOUT IV CONTRAST: 11/19/18 HISTORY: Pain in anterior ankle. Cannot dorsiflex foot. Right foot drop. Multiplanar and multisequence MRI examination of the hindfoot including the calf and lower tibia and fibula region. There is abnormal signal associated with the tibialis anterior tendon at the insertion with what appears to be a complete full thickness retracted tear with roughly 2.5 to 3 cm of retract ion. There is a tiny interosseous cystic focus within the navicular bone. The remainder of the extens or tendons, flexor tendons, and peroneus tendons appear unremarkable for patient's age. No abnormal m arrow signal. There is some overall fatty replacement and muscle volume loss within the soleus muscle and also within the gastrocnemius muscles. IMPRESSION: Evidence for complete retracted tear the tibialis anterior tendon from the insertion with approximate ly 3 cm of retraction. POS: OFF
== END 2018-11-19 15:04 | disposition home or self-care (01) ==
LOC: TBSIIMAG 15:03
PROVIDERS: ATTEND Orthopaedic Surgery
DX: M21.371 Foot drop, right foot (principal); S96.811A Strain of other specified muscles and tendons at ankle and foot level, right foot, initial encounter

== ENCOUNTER 2019-02-24 11:02 | Outpatient (CLI) | payer MEDICARE ==
--- NOTE | 2019-02-24 11:28 | RAD ---
Exam: Chest 2 views HISTORY:Dyspnea Comparison: 05/10/2015 FINDINGS: Lungs: Bilateral interstitial prominence Cardiac silhouette:Stable enlargement of cardiac silhouette. Prior sternotomy. Vascular calcification . Pulmonary vessels: Slight central engorgement Pleural Spaces: Clear Pneumothorax: None Osseous abnormalities: None of acuity. IMPRESSION: Findings which favor CHF. Correlate clinically.
== END 2019-02-24 11:03 | disposition home or self-care (01) ==
LOC: RAD 11:02
PROVIDERS: ATTEND Internal Medicine Critical Care Medicine
DX: R06.00 Dyspnea, unspecified (principal)
CPT/HCPCS: 71046

== ENCOUNTER 2019-03-17 12:39 | Outpatient (CLI) | payer MEDICARE ==
--- NOTE | 2019-03-17 13:37 | RAD ---
CHEST 2 VIEWS: Date: 03/17/19 HISTORY: Dyspnea. COMPARISON: 02/24/19. FINDINGS: Stable appearing cardiomegaly, bilateral pleural thickening, and increased linear and interstitial ma rkings bilaterally. No confluent pneumonia, overt edema, or pleural effusion. IMPRESSION: Stable chronic changes. No significant new process. POS: TPC
== END 2019-03-17 12:40 | disposition home or self-care (01) ==
LOC: RAD 12:39
PROVIDERS: ATTEND Internal Medicine Critical Care Medicine
DX: R06.00 Dyspnea, unspecified (principal)
CPT/HCPCS: 71046

== ENCOUNTER 2020-03-22 11:40 | Outpatient (CLI) | payer MEDICARE ==
--- NOTE | 2020-03-22 12:18 | RAD ---
EXAM: Two views chest PROVIDED CLINICAL HISTORY: Dyspnea. COMPARISON: 03/17/2019. FINDINGS: Postoperative changes related to CABG are again noted. Cardiac silhouette remains mildly enlarged. Th e pulmonary vasculature is within normal limits. Linear increased density in the region of the minor fissure may be related to minimal pleural thickening. No consolidation or pleural fluid is seen bilaterally. Vascular calcifications are again seen in the thoracic aorta. No interval change when compared to prior exam. IMPRESSION: Stable mild chronic lung changes without evidence of an acute cardiopulmonary process..
== END 2020-03-22 11:41 | disposition home or self-care (01) ==
LOC: BICRAD 11:40
PROVIDERS: ATTEND Internal Medicine Critical Care Medicine
DX: R06.00 Dyspnea, unspecified (principal)
CPT/HCPCS: 71046

== ENCOUNTER 2021-02-24 10:38 | Outpatient (CLI) | payer MEDICARE ==
[2021-02-24 11:41] LABS: Hemoglobin 12.9 g/dL (13.5-17.5); Mean Corpuscular HGB CONC 34.3 g/dL (32.0-36.0); Mean Corpuscular Hemoglobin 30.9 pg (27.0-33.0); Mean Corpuscular Volume 90.2 fl (81.2-95.1); Mean Platelet Volume 11.3 fl (7.4-10.4); Platelet Count 117 10x3/uL (150-450); RBC Distribution Width 12.7 % (11.5-14.5); Red Blood Cell (RBC) Count 4.17 10x6/uL (4.32-5.72); White Blood Cell (WBC) Count 7.3 10x3/uL (3.5-10.5)
[2021-02-24 11:46] LABS: Bilirubin Neg (Negative); Blood, Urine Negative (Negative); Clarity Clear (Clear); Glucose, Urine (Dipstick) >=1000 mg/dL (Negative); Ketone, Urine Negative (Negative); Leukocyte Negative (Negative); Nitrite Negative (Negative); Protein, Urine (Dipstick) Negative (Neg-Trace); Specific Gravity, Urine 1.015 (1.002-1.036); Urobilinogen Normal mg/dL (Less than 2); pH, Urine 6.5 (5.0-9.0)
[2021-02-24 11:51] LABS: PTT 27.1 sec (22.0-33.0); Prothrombin Time 11.1 sec (9.5-12.1)
[2021-02-24 11:55] LABS: Anion Gap 12 mmol/L (10-20); BUN (Urea Nitrogen) 24 mg/dL (8.4-25.7); Calc. Creatinine Clearance 0 mL/min (70-130); Calcium 9.2 mg/dL (7.8-10.44); Carbon Dioxide 25 mmol/L (23-31); Chloride 105 mmol/L (98-107); Glucose 149 mg/dL (83-110); Potassium 4.5 mmol/L (3.5-5.1); Sodium 137 mmol/L (136-145)
[2021-02-24 12:11] LABS: Bacteria/HPF None Seen HPF (None Seen); RBC/HPF None Seen HPF (0-3); Squamous Epithelial None Seen HPF (0-3); WBC/HPF None Seen HPF (0-3)
[2021-02-24 23:18] LABS: SARS-CoV-2 PCR by NAA Not Detected (NotDetected)
== END 2021-02-24 10:39 | disposition home or self-care (01) ==
LOC: LABBT 10:38
PROVIDERS: ATTEND Urology
DX: Z01.818 Encounter for other preprocedural examination (principal); M17.11 Unilateral primary osteoarthritis, right knee; Z20.822 Contact with and (suspected) exposure to COVID-19
CPT/HCPCS: 80048; 81001; 85027; 85610; 85730; 87086; 93005; U0003; U0005; 93010

== ENCOUNTER 2021-03-01 06:00 | Day surgery (SDC) | payer MEDICARE ==
[2021-02-27 11:16] VITALS: BMI 35.5
[2021-03-01] MEDS ORDERED: Levofloxacin 500 mg/D5W 100 ml Premix Bag ONE (06:14)
[2021-03-01] MEDS ORDERED: Iothalamate Meglumine 60% 50 ML VIAL FS ONE (07:01)
[2021-03-01] MEDS ORDERED: Bupivacaine 0.25% HCL 30 ML VIAL ONE (07:02)
[2021-03-01] MEDS ORDERED: Bacitracin Zinc Ointment 30 gm TUBE ONE (07:03)
[2021-03-01] MEDS ORDERED: Fentanyl 100 MCG/2 ML VIAL ONE (07:04)
[2021-03-01] MEDS ORDERED: Iopamidol 0 ML ONE ×2 (07:21→07:22)
[2021-03-01] MEDS ORDERED: Iopamidol 0 ML FS ONE (07:22)
[2021-03-01] MEDS ORDERED: Ondansetron PF 4 MG/2 ML Vial ONE (07:30)
[2021-03-01] MEDS ORDERED: Lidocaine 1% PF 5 ML VIAL ONE (07:30)
[2021-03-01] MEDS ORDERED: PROPOFOL 200 MG/20 ML VIAL ONE (07:30)
[2021-03-01] MEDS ORDERED: Dexamethasone 20 MG/5 ML VIAL ONE (07:30)
[2021-03-01] MEDS ORDERED: Albuterol Sulfate HFA (OR ONLY) ONE (07:44)
[2021-03-01] MEDS ORDERED: Phenazopyridine HCl 100 MG TAB ONE (08:24)
[2021-03-01] MEDS ORDERED: Hyoscyamine Sulfate SL 0.125 mg Tablet ONE ×2 (08:25)
== END 2021-03-01 12:56 | disposition home or self-care (01) ==
LOC: SDC 06:00
PROVIDERS: ATTEND Urology
PROC: 0T7D8DZ Dilation of Urethra with Intraluminal Device, Via Natural or Artificial Opening Endoscopic (ICD-10-PCS; principal; 2021-03-01)
DX: N40.1 Benign prostatic hyperplasia with lower urinary tract symptoms (principal); N13.8 Other obstructive and reflux uropathy; R35.0 Frequency of micturition; N32.89 Other specified disorders of bladder; N52.9 Male erectile dysfunction, unspecified; N48.6 Induration penis plastica; E11.9 Type 2 diabetes mellitus without complications; I10 Essential (primary) hypertension; I25.10 Atherosclerotic heart disease of native coronary artery without angina pectoris; Z79.4 Long term (current) use of insulin; Z79.84 Long term (current) use of oral hypoglycemic drugs; Z79.899 Other long term (current) drug therapy; Z88.1 Allergy status to other antibiotic agents; Z91.041 Radiographic dye allergy status; Z95.1 Presence of aortocoronary bypass graft
CPT/HCPCS: 76000; 82962; C9740; 36416; J1100; J1956; J2405; J2704; J3010; L8699; Q9961-U8; Q9966; Q9967; S0020